=== PATIENT | male | born 1985 | race Caucasian/White ===

== ENCOUNTER 2019-12-15 14:46 | Inpatient (IN) | payer OTHER ==
--- NOTE | 2019-12-15 14:54 | PDOC ---
Rapid Medical Evaluation Chief Complaint: Pain Time Seen by Provider: 12/15/19 14:54 Medical Evaluation: Allergies Allergy/AdvReac Type Severity Reaction Status Date / Time No Known Allergies Allergy Unverified 12/15/19 14:51 Vital Signs Temp Pulse Resp BP Pulse Ox 100.1 F H 104 H 20 149/83 100 12/15/19 14:48 12/15/19 14:48 12/15/19 14:48 12/15/19 14:48 12/15/19 14:48 12/15/19 14:54 I have performed a brief in-person evaluation of this patient. CC: RLQ pain x2 days PE: RLQ tenderness. No guarding. Orders: abd w/u Patient will proceed to ED for further evaluation. Discharge Disposition - Diagnosis RLQ abdominal pain - Referrals Referrals: Regina Cardenas MD [Primary Care Provider] - - Patient Instructions - Post Discharge Activity
[2019-12-15] MEDS ORDERED: SODIUM CHLORIDE 1,000 ML IV STA (14:55)
[2019-12-15] MEDS ORDERED: ONDANSETRON 4 MG/2 ML VIAL IVPUSH ONE (14:55)
[2019-12-15] MEDS ORDERED: morphine CARPU-JECT 4 MG/1 ML DISP.SYRIN IVPUSH ONE (14:55)
[2019-12-15] MEDS ORDERED: ACETAMINOPHEN 1000 MG/100 ML VIAL (NON FORMULARY) IVPB ONE (15:03)
[2019-12-15] MEDS ORDERED: ACETAMINOPHEN INJECTION 100 ML IVPB ONE (16:12)
[2019-12-15] MEDS ORDERED: morphine SULFATE 4 MG/ML VIAL ONE (16:12)
--- NOTE | 2019-12-15 16:16 | PDOC ---
Documentation entered by Albaro Castillo SCRIBE, acting as scribe for Magy Paredes MD. Magy Paredes MD: This documentation has been prepared by the Anna galeano Nirvannie, SCRIBE, under my direction and personally reviewed by me in its entirety. I confirm that the documentation accurately reflects all work, treatment, procedures, and medical decision making performed by me. Attending Attestation - Resident Resident Name: RupaJennifer - ED Attending Attestation I have performed the following: I have examined & evaluated the patient, The case was reviewed & discussed with the resident, I agree w/resident's findings & plan, Exceptions are as noted - HPI HPI: 12/15/19 16:05 34YOM without PMH who p/w RLQ pain for the past 1.5 days which has been worsening and is constant/throbbing and 8/10. It is exacerbated by movement and associated with f/c. However he denies any n/v/d/c, flank/back pain, testicular pain or swelling or skin changes, dysuria, or other symptoms. He tried taking anti-gas/antacid medications but did not take any pain medications. He denies any prior history of these symptoms. - Physicial Exam PE: 12/15/19 16:07 GENERAL: a bit uncomfortable and a bit diaphoretic, A/Ox4, no distress, answers questions appropriately HEENT: PERRLA, EOMI, moist mucous membranes NECK/BACK: no midline ttp, no spinal stepoff or deformity, no hematoma, full ROM, neck supple CARDIOVASCULAR: regular rate/rhythm, no MGR, strong peripheral pulses, capillary refill <2 seconds, extremities wwp, no edema LUNGS/RESPIRATORY: no respiratory distress, CTAB GI/ABDOMEN: symmetric [id number], normoactive BS, soft, moderate RLQ ttp, no midline pulsatile masses : no CVA tenderness, normal testicular lay and no testicular tenderness and no scrotal skin changes or swelling, normal symmetric cremasteric reflexes MSK/EXTREMITIES: no muscle atrophy, no acute deformity SKIN: warm and dry, no pallor, no jaundice, no rash, no pathologic-appearing bruising, no skin breakdown, no cuts, no lesions NEUROLOGICAL: GCS 15, CN II-XII grossly intact, 5/5 strength proximally and distally, no facial droop - Medical Decision Making 12/15/19 16:38 34YOM p/w RLQ abdominal pain, fever, chills. Initial Vital Signs Temp Pulse Resp BP Pulse Ox 100.1 F H 104 H 20 149/83 100 12/15/19 14:48 12/15/19 14:48 12/15/19 14:48 12/15/19 14:48 12/15/19 14:48 DDX IBNLT: most likely appendicitis, also possible renal colic, less likely incarcerated/strangulated hernia, testicular torsion (especially given normal testicular exam), constipation, musculoskeletal, malignancy, contact dermatitis, etc. W/U ordered: Labs as noted below, CT abdomen/pelvis with IV contrast TX ordered: IVF Ofirmev Morphine Zofran Laboratory Tests 12/15/19 12/15/19 12/15/19 16:15 16:15 16:15 WBC 12.7 H RBC 5.07 Hgb 14.7 Hct 44.8 MCV 88.4 MCH 29.0 MCHC 32.8 RDW 13.8 Plt Count 156 MPV 9.8 Absolute Neuts (auto) 10.0 H Neutrophils % 78.8 Lymphocytes % 12.1 Monocytes % 8.7 Eosinophils % 0.1 Basophils % 0.3 Nucleated RBC % 0 PT with INR 12.60 INR 1.07 PTT (Actin FS) 31.1 Sodium Potassium Chloride Carbon Dioxide Anion Gap BUN Creatinine Est GFR (CKD-EPI)AfAm Est GFR (CKD-EPI)NonAf Random Glucose Calcium Total Bilirubin AST ALT Alkaline Phosphatase Total Protein Albumin Lipase Urine Color Yellow Urine Appearance Clear Urine pH 8.5 H Ur Specific [place] 1.017 Urine Protein Negative Urine Glucose (UA) Negative Urine Ketones Negative Urine Blood Negative Urine Nitrite Negative Urine Bilirubin Negative Urine Urobilinogen 1.0 Ur Leukocyte Esterase Negative Blood Type Antibody Screen 12/15/19 12/15/19 16:15 16:15 WBC RBC Hgb Hct MCV MCH MCHC RDW Plt Count MPV Absolute Neuts (auto) Neutrophils % Lymphocytes % Monocytes % Eosinophils % Basophils % Nucleated RBC % PT with INR INR PTT (Actin FS) Sodium 136 Potassium 4.1 Chloride 100 Carbon Dioxide 26 Anion Gap 10 BUN 12.6 Creatinine 0.9 Est GFR (CKD-EPI)AfAm 126.90 Est GFR (CKD-EPI)NonAf 109.49 Random Glucose 101 Calcium 8.9 Total Bilirubin 0.8 AST 27 ALT 44 Alkaline Phosphatase 99 Total Protein 7.4 Albumin 3.9 Lipase 107 Urine Color Urine Appearance Urine pH Ur Specific [place] Urine Protein Urine Glucose (UA) Urine Ketones Urine Blood Urine Nitrite Urine Bilirubin Urine Urobilinogen Ur Leukocyte Esterase Blood Type O POSITIVE Antibody Screen Negative 12/15/19 18:53 Patient has appendicitis on our initial CT read, necessitating admission and appendectomy, Dr. Goode has spoken with Dr. Melara, placed consult orders, started antibiotics. Patient is PNO and maintenance IVF started. Discharge - Discharge Information Problems reviewed: Yes Clinical Impression/Diagnosis: Acute appendicitis Qualifiers: Acute appendicitis type: other Qualified Code(s): K35.890 - Other acute appendicitis without perforation or gangrene; K35.89 - Other acute appendicitis Condition: Guarded - Admission Yes - Follow up/Referral Referrals: Regina Cardenas MD [Primary Care Provider] - - Patient Discharge Instructions - Post Discharge Activity
[2019-12-15 16:53] LABS: BASO % 0.3 % (0-2.0); EOS % 0.1 % (0-4.5); HEMATOCRIT 44.8 % (35.4-49); HEMOGLOBIN 14.7 GM/dL (11.7-16.9); LYMPH % 12.1 % (8-40); MCHC 32.8 g/dl (32.0-35.9); MEAN CELL VOLUME 88.4 fl (80-96); MEAN PLT VOLUME 9.8 fl (7.5-11.1); MONO % 8.7 % (3.8-10.2); NEUT % 78.8 % (42.8-82.8); PLATELET COUNT 156 K/MM3 (134-434); RBC 5.07 M/mm3 (4.00-5.60); RDW 13.8 % (11.9-15.9); WHITE BLOOD COUNT 12.7 K/mm3 (4.0-10.0)
[2019-12-15 16:55] LABS: PH,URINE 8.5 (5.0-8.0); URINE APPEARANCE CLEAR; URINE BILIRUBIN NEGATIVE (NEGATIVE); URINE COLOR YELLOW; URINE GLUCOSE (UA) NEGATIVE (NEGATIVE); URINE KETONE NEGATIVE (NEGATIVE); URINE LEUK ESTERASE NEGATIVE (NEGATIVE); URINE NITRITE NEGATIVE (NEGATIVE); URINE PROTEIN NEGATIVE (NEGATIVE)
[2019-12-15 17:13] LABS: INR 1.07 (0.83-1.09); PROTHROMBIN TIME (PATIENT) 12.6 SEC (9.7-13.0)
[2019-12-15 17:15] LABS: ACTIVATED PTT 31.1 SECONDS (25.2-36.5)
[2019-12-15 17:24] LABS: ALBUMIN 3.9 g/dl (3.4-5.0); BILIRUBIN,TOTAL 0.8 mg/dL (0.2-1); BLOOD UREA NITROGEN 12.6 mg/dL (7-18); CALCIUM 8.9 mg/dL (8.5-10.1); CREATININE 0.9 mg/dL (0.55-1.3); POTASSIUM 4.1 mmol/L (3.5-5.1); TOT PROT 7.4 g/dl (6.4-8.2)
[2019-12-15] MEDS ORDERED: PIPERACILLIN/TAZOB 3.375 GM 3.375 GM in DEXTROSE 5%-WATER - 50 ML IVPB ONE (18:55)
[2019-12-15] MEDS ORDERED: LACTATED RINGERS SOLUTION 1,000 ML/1,000 ML INFUS.BAG IV SCH (19:00)
[2019-12-15] MEDS ORDERED: PIPERACILLIN/TAZOB 3.375 GM 3.375 GM/50 ML BAG IVPB ONE (19:15)
--- NOTE | 2019-12-15 19:19 | PDOC ---
History of Present Illness - General Chief Complaint: Pain Stated Complaint: Pain Time Seen by Provider: 12/15/19 14:54 History Source: Patient Exam Limitations: No Limitations - History of Present Illness Initial Comments: 12/15/19 19:10 34y M with no significant PMH presenting to the ER for RLQ abdominal pain that started yesterday at 0400. He states the pain is sharp, in the RLQ, associated with nausea and bloating. He has not had this pain before. He tried taking antacids and Mylanta but it did not help. Last meal was around noon today and last BM was this AM. Denies chills, chest pain, vomiting, diarrhea, constipation, abdominal surgeries, dysuria, testicular pain, penile discharge, history of STDs, SOB. PMD: Ronald PMH: none PSH: none Meds: none Allergies: nkda Social: denies Past History - Medical History Allergies/Adverse Reactions: Allergies Allergy/AdvReac Type Severity Reaction Status Date / Time No Known Allergies Allergy Unverified 12/15/19 14:51 Home Medications: Ambulatory Orders Unobtainable 12/15/19 COPD: No - Psycho-Social/Smoking History Smoking History: Never smoked Have you smoked in the past 12 months: No Information on smoking cessation initiated: No - Substance Abuse Hx (Audit-C & DAST Scrn) How often the patient has a drink containing alcohol: 4 0r more times/wk Number of drinks the patient has on a typical day: 1 or 2 How often the patient has six or more drinks on one occasion: Daily or almost daily Score: In Men: 4 or > Positive; In Women: 3 or > Positive: 8 Screen Result (Pos requires Nsg. Audit-10AR): Positive In the last yr the pt used illegal drug/Rx for NonMed reason: No Score: Yes response is considered Positive: 0 Screen Result (Positive result requires Nsg. DAST-10): Negative Review of Systems - Review of Systems Constitutional: Yes: Fever. No: Loss of Appetite, Night Sweats HEENTM: No: Symptoms Reported Respiratory: No: Symptoms reported Cardiac (ROS): No: Symptoms Reported ABD/GI: Yes: See HPI : No: Symptoms Reported Musculoskeletal: No: Symptoms Reported Integumentary: No: Symptoms Reported *Physical Exam - Vital Signs Last Vital Signs Temp Pulse Resp BP Pulse Ox 100.1 F H 104 H 20 149/83 100 12/15/19 14:48 12/15/19 14:48 12/15/19 14:48 12/15/19 14:48 12/15/19 14:48 - Physical Exam General Appearance: Yes: Nourished, Appropriately Dressed. No: Apparent Distress HEENT: positive: EOMI, PRIYANK. negative: Normal ENT Inspection Neck: positive: Trachea midline, Supple Respiratory/Chest: positive: Lungs Clear, Normal Breath Sounds. negative: Rales, Rhonchi, Stridor, Wheezing, Dullness Cardiovascular: positive: Regular Rhythm, Regular Rate, S1, S2. negative: Edema, JVD, Murmur Vascular Pulses: Dorsalis-Pedis (R): 2+, Doralis-Pedis (L): 2+ Gastrointestinal/Abdominal: positive: Normal Bowel Sounds, Soft, Distended (mild distension), Tenderness (RLQ +McBurney's). negative: Guarding, Rebound Male Genitalia: positive: normal genitalia, other (normal testicular lie, normal cremasteric reflexes bilaterally). negative: discharge, testicular tenderness, testicular mass Musculoskeletal: negative: CVA Tenderness Extremity: positive: Normal Capillary Refill. negative: Pedal Edema, Swelling, Calf Tenderness Integumentary: positive: Normal Color, Dry, Warm Neurologic: positive: pediatric acute care unit nurse II-XII NML intact, Fully Oriented, Alert, Normal Mood/Affect, Normal Response, Motor Strength 5/5 ED Treatment Course - LABORATORY CBC & Chemistry Diagram: 12/15/19 16:15 12/15/19 16:15 - ADDITIONAL ORDERS Additional order review: Laboratory Results 12/15/19 12/15/19 12/15/19 16:15 16:15 16:15 PT with INR INR PTT (Actin FS) Sodium 136 Potassium 4.1 Chloride 100 Carbon Dioxide 26 Anion Gap 10 BUN 12.6 Creatinine 0.9 Est GFR (CKD-EPI)AfAm 126.90 Est GFR (CKD-EPI)NonAf 109.49 Random Glucose 101 Calcium 8.9 Total Bilirubin 0.8 AST 27 ALT 44 Alkaline Phosphatase 99 Total Protein 7.4 Albumin 3.9 Lipase 107 Urine Color Yellow Urine Appearance Clear Urine pH 8.5 H Ur Specific [place] 1.017 Urine Protein Negative Urine Glucose (UA) Negative Urine Ketones Negative Urine Blood Negative Urine Nitrite Negative Urine Bilirubin Negative Urine Urobilinogen 1.0 Ur Leukocyte Esterase Negative Blood Type O POSITIVE Antibody Screen Negative 12/15/19 16:15 PT with INR 12.60 INR 1.07 PTT (Actin FS) 31.1 Sodium Potassium Chloride Carbon Dioxide Anion Gap BUN Creatinine Est GFR (CKD-EPI)AfAm Est GFR (CKD-EPI)NonAf Random Glucose Calcium Total Bilirubin AST ALT Alkaline Phosphatase Total Protein Albumin Lipase Urine Color Urine Appearance Urine pH Ur Specific [place] Urine Protein Urine Glucose (UA) Urine Ketones Urine Blood Urine Nitrite Urine Bilirubin Urine Urobilinogen Ur Leukocyte Esterase Blood Type Antibody Screen 12/15/19 16:15 RBC 5.07 MCV 88.4 MCHC 32.8 RDW 13.8 MPV 9.8 Neutrophils % 78.8 Lymphocytes % 12.1 Monocytes % 8.7 Eosinophils % 0.1 Basophils % 0.3 - Medications Given in the ED: ED Medications Discontinued Medications Generic Name Dose Route Start Last Admin Trade Name Freq PRN Reason Stop Dose Admin Acetaminophen 1,000 mg 12/15/19 15:03 12/15/19 16:21 Ofirmev Injection - IVPB 12/15/19 15:04 1,000 mg ONCE ONE Administration Sodium Chloride 1,000 mls @ 1,000 mls/hr 12/15/19 14:55 12/15/19 16:21 Normal Saline - IV 12/15/19 15:54 1,000 mls/hr ASDIR STA Administration Morphine Sulfate 4 mg 12/15/19 14:55 12/15/19 16:21 Morphine Injection - IVPUSH 12/15/19 14:56 4 mg ONCE ONE Administration Ondansetron HCl 4 mg 12/15/19 14:55 12/15/19 16:21 Zofran Injection IVPUSH 12/15/19 14:56 4 mg ONCE ONE Administration Medical Decision Making - Medical Decision Making 12/15/19 19:20 34y M presenting with RLQ abdominal pain. vitals: febrile pe: RLQ tenderness at McBurney's point. negative rovsing. high suspicion for appendicitis. do not suspect torsion or gu pathology given normal testicular exam. labs ordered by rme. will give tylenol for fever. morphine for pain, LR. labs show leukocytosis otherwise wnl call from Dr. Crystal: +appendicitis. call placed to surgery; will take to OR tomorrow -Zosyn -LR at 125cc/h admit to med/surg. Discharge - Discharge Information Problems reviewed: Yes Clinical Impression/Diagnosis: Acute appendicitis Qualifiers: Acute appendicitis type: other Qualified Code(s): K35.890 - Other acute appendicitis without perforation or gangrene Condition: Guarded - Admission Yes - Follow up/Referral Referrals: Regina Cardenas MD [Primary Care Provider] - - Patient Discharge Instructions - Post Discharge Activity
--- NOTE | 2019-12-15 19:29 | PN ---
Teaching Attending Note Name of Resident: Mike Bell ATTENDING PHYSICIAN STATEMENT I saw and evaluated the patient. I reviewed the resident's note and discussed the case with the resident. I agree with the resident's findings and plan as documented. SUBJECTIVE: Patient is a 34 year old man with no reported PMH who presents with RLQ pain for the past 2 days. Pain has been worsening, is constant, throbbing and rated 8/10. It is exacerbated by movement and associated with fever and chills. He tried taking anti-gas/antacid medications but did not take any pain medications. He denies any prior abdominal surgery or GI disorder. Denies nausea, vomiting, SOB, back pain, chest pain, testicular pain/swelling, diarrhea or dysuria. Denies al cohol, tobacco or illicit drug use. No sick contacts or recent travels. 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 His brother had appendicitis. Family history is otherwise unremarkable. OBJECTIVE: Alert Vital Signs Period Temp Pulse Resp BP Sys/David Pulse Ox Last 24 Hr 100.1 F 68-104 18-20 127-149/81-83 97-100 HEENT: No Jaundice, eye redness or discharge, PERRLA, EOMI. Normocephalic, atraumatic. External ears are normal and hearing is grossly intact. No nasal discharge. Neck: Supple, nontender. No palpable adenopathy or thyromegaly. No JVD Chest: Good effort. Clear to auscultation and percussion. Heart: Regular. No S3, rub or murmur Abdomen: Not distended, soft, RLQ tenderness and no HSM. No rebound or guarding. Normal bowel sounds. Ext: Peripheral pulses intact. No leg edema. Skin: Warm and dry. No petechiae, rash or ecchymosis. Neuro: Alert. Oriented x3. CN 2-12 grossly intact. Sensation grossly intact in all four extremities and DTR are symmetric. Psych: Appropriate mood and affect. Good insight. Home Medications Medication Instructions Recorded Unobtainable 12/15/19 Abnormal Lab Results 12/15/19 12/15/19 16:15 16:15 WBC 12.7 H Absolute Neuts (auto) 10.0 H Urine pH 8.5 H Current Medications Generic Name Dose Route Start Last Admin Trade Name Freq PRN Reason Stop Dose Admin Piperacillin Sod/Tazobactam 50 mls @ 100 mls/hr 12/16/19 02:00 Sod 3.375 gm/ Dextrose IVPB Q8H-IV MANJEET Protocol Piperacillin Sod/Tazobactam 50 mls @ 100 mls/hr 12/16/19 02:00 Sod 3.375 gm/ Dextrose IVPB 12/16/19 18:29 Q8H-IV MANJEET Protocol Lactated Ringer's 1,000 mls @ 100 mls/hr 12/15/19 21:10 Lactated Ringers Solution IV ASDIR MANJEET Morphine Sulfate 2 mg 12/15/19 20:47 12/15/19 21:32 Morphine Sulfate IVPUSH 2 mg Q4H PRN Administration PAIN LEVEL 7 - 10 ASSESSMENT AND PLAN: 1. Appendicitis with possible early perforation - CT scan of abdomen/pelvis with IV contrast shows appendicitis with possible early perforation and diffuse hepatic steatosis. ER staff consulted surgery. Patient being kept NPO and got IV Zosyn. Will continue IV LR, IV Zosyn and use IV Morphine for pain control. Viral testing for COVID-19 ordered and patient placed on airborne, droplet and contact isolation. EKG shows NSR at 65/minute and QTc [address]-T wave changes. 2. DVT prophylaxis - SCD. 3. Advance directives - Full code
--- NOTE | 2019-12-15 20:46 | HP ---
CHIEF COMPLAINT: Right lower abd pain PCP: HISTORY OF PRESENT ILLNESS: 34M w/ no significant PMH presented to [facility] for complaint of 2d of abdominal pain, initially starting vague periumbilical before migrating to a focal area of the RLQ. Initially tried a liquid antacid which provided mild relief. When he wo ke up today he felt that the pain was still 8 of 10 so he decided to go to the hospital where his brother in-law is part of the R staff. Denies F/C, NVD. Has an appetite. ER course was notable for: (1) Tmax 100.1F, HR 104, WBC 12.7 (2) Tbil 0.8, ASTn 27/44, Lipase 107 (3) CT A/P: acute appendicitis, possible early perforation, diffuse hepatic steatosis (4): NS x1L, LR x1L, zofran, ofirmev, morphine 4, zosyn Recent Travel: denies PAST MEDICAL HISTORY: none PAST SURGICAL HISTORY: none Social History: Smoking: smoke a few years in late teenage Alcohol: usually 6 beers a week Drugs: denies Allergies No Known Allergies Allergy (Unverified 12/15/19 14:51) HOME MEDICATIONS: Home Medications Medication Instructions Recorded Unobtainable 12/15/19 REVIEW OF SYSTEMS CONSTITUTIONAL: Absent: fever, chills, diaphoresis, generalized weakness, malaise, loss of appetite, weight change HEENT: Absent: rhinorrhea, nasal congestion, throat pain, throat swelling, difficulty swallowing, mouth swelling, ear pain, eye pain, visual changes CARDIOVASCULAR: Absent: chest pain, syncope, palpitations, irregular heart rate, lightheadedness, peripheral edema RESPIRATORY: Absent: cough, shortness of breath, dyspnea with exertion, orthopnea, wheezing, stridor, hemoptysis GASTROINTESTINAL: periumbilical pain, RLQ pain Absent: abdominal pain, abdominal distension, nausea, vomiting, diarrhea, constipation, melena, hematochezia GENITOURINARY: Absent: dysuria, frequency, urgency, hesitancy, hematuria, flank pain, genital pain MUSCULOSKELETAL: Absent: myalgia, arthralgia, joint swelling, back pain, neck pain SKIN: Absent: rash, itching, pallor HEMATOLOGIC/IMMUNOLOGIC: Absent: easy bleeding, easy bruising, lymphadenopathy, frequent infections ENDOCRINE: Absent: unexplained weight gain, unexplained weight loss, heat intolerance, cold intolerance NEUROLOGIC: Absent: headache, focal weakness or paresthesias, dizziness, unsteady gait, seizure, mental status changes, bladder or bowel incontinence PSYCHIATRIC: Absent: anxiety, depression, suicidal or homicidal ideation, hallucinations. PHYSICAL EXAMINATION Vital Signs - 24 hr 12/15/19 12/15/19 14:48 19:44 Temperature 100.1 F H Pulse Rate 104 H Pulse Rate [ 68 Left] Respiratory 20 18 Rate Blood Pressure 149/83 Blood Pressure 127/81 [Left Arm] O2 Sat by Pulse 100 97 Oximetry (%) GENERAL: Awake, alert, and fully oriented, in no acute distress. HEAD: Normal with no signs of trauma. EYES: extraocular movements intact, sclera anicteric, conjunctiva clear. EARS, NOSE, THROAT: oropharynx clear without exudates. Moist mucous membranes. NECK: Normal range of motion, supple without lymphadenopathy, JVD, or masses. LUNGS: Breath sounds equal, clear to auscultation bilaterally. No wheezes, and no crackles. No accessory muscle use. HEART: Regular rate and rhythm, normal S1 and S2 without murmur, rub or gallop. ABDOMEN: Soft, not distended, TTP of McBurney's point, Neg Rovsing's, Neg Psoas, Positive Obturator's. Involuntary guarding with palpation of RLQ. Neg rebound. MUSCULOSKELETAL: Normal range of motion at all joints. No bony deformities or tenderness. No CVA tenderness. UPPER EXTREMITIES: 2+ pulses, warm, well-perfused. No cyanosis. No clubbing. No peripheral edema. LOWER EXTREMITIES: 2+ pulses, warm, well-perfused. No calf tenderness. No peripheral edema. NEUROLOGICAL: normal speech. Laboratory Results - last 24 hr 12/15/19 12/15/19 12/15/19 16:15 16:15 16:15 WBC 12.7 H RBC 5.07 Hgb 14.7 Hct 44.8 MCV 88.4 MCH 29.0 MCHC 32.8 RDW 13.8 Plt Count 156 MPV 9.8 Absolute Neuts (auto) 10.0 H Neutrophils % 78.8 Lymphocytes % 12.1 Monocytes % 8.7 Eosinophils % 0.1 Basophils % 0.3 Nucleated RBC % 0 PT with INR 12.60 INR 1.07 PTT (Actin FS) 31.1 Sodium Potassium Chloride Carbon Dioxide Anion Gap BUN Creatinine Est GFR (CKD-EPI)AfAm Est GFR (CKD-EPI)NonAf Random Glucose Calcium Total Bilirubin AST ALT Alkaline Phosphatase Total Protein Albumin Lipase Urine Color Yellow Urine Appearance Clear Urine pH 8.5 H Ur Specific [place] 1.017 Urine Protein Negative Urine Glucose (UA) Negative Urine Ketones Negative Urine Blood Negative Urine Nitrite Negative Urine Bilirubin Negative Urine Urobilinogen 1.0 Ur Leukocyte Esterase Negative Blood Type Antibody Screen 12/15/19 12/15/19 16:15 16:15 WBC RBC Hgb Hct MCV MCH MCHC RDW Plt Count MPV Absolute Neuts (auto) Neutrophils % Lymphocytes % Monocytes % Eosinophils % Basophils % Nucleated RBC % PT with INR INR PTT (Actin FS) Sodium 136 Potassium 4.1 Chloride 100 Carbon Dioxide 26 Anion Gap 10 BUN 12.6 Creatinine 0.9 Est GFR (CKD-EPI)AfAm 126.90 Est GFR (CKD-EPI)NonAf 109.49 Random Glucose 101 Calcium 8.9 Total Bilirubin 0.8 AST 27 ALT 44 Alkaline Phosphatase 99 Total Protein 7.4 Albumin 3.9 Lipase 107 Urine Color Urine Appearance Urine pH Ur Specific [place] Urine Protein Urine Glucose (UA) Urine Ketones Urine Blood Urine Nitrite Urine Bilirubin Urine Urobilinogen Ur Leukocyte Esterase Blood Type O POSITIVE Antibody Screen Negative ASSESSMENT/PLAN: 34M w/ no significant PMH presented to [facility] for complaint of 2d of abdominal pain, initially starting vague periumbilical before migrating to a focal area of the RLQ. CT findings suggestive of appendicitis. Admitted for appendicitis. #RLQ pain --likely 2/2 appenditis #Sepsis 2/2 appendicitis > Tmax 100.1F, HR 104, WBC 12.7 > CT A/P: acute appendicitis, possible early perforation, diffuse hepatic steatosis - NPO - abx regimen: zosyn - pain regimen: morphine 2mg - mIVF - ID consult(Isidra) - Surgery Consult(Kelton): --Dr Melara aware, rec pending FEN - LR @100 - NPO DVT PPX: - SCDs Family Medical History Family Hx Gastrointestinal Disorder: Brother (appendicitis) Visit type - Emergency Visit Emergency Visit: Yes ED Registration Date: 12/15/19 Care time: The patient presented to the Emergency Department on the above date and was hospitalized for further evaluation of their emergent condition. - New Patient This patient is new to me today: Yes Date on this admission: 12/16/19 - Critical Care Critical Care patient: No ATTENDING PHYSICIAN STATEMENT I saw and evaluated the patient. I reviewed the resident's note and discussed the case with the resident. I agree with the resident's findings and plan as documented. SUBJECTIVE: OBJECTIVE: ASSESSMENT AND PLAN:
[2019-12-15] MEDS ORDERED: LACTATED RINGERS SOLUTION 1,000 ML IV SCH (21:00)
[2019-12-15] MEDS ORDERED: MORPHINE SULFATE 2 MG/ML VIAL ONE (21:30)
[2019-12-15] MEDS: MORPHINE SULFATE 2 MG/ML VIAL IVPUSH PRN (21:32)
[2019-12-16 00:34] VITALS: BMI 29.5
[2019-12-16] MEDS ORDERED: MORPHINE SULFATE 2 MG/ML VIAL IVPUSH ONE (00:38)
[2019-12-16] MEDS: LACTATED RINGERS SOLUTION 1,000 ML IV SCH ×3 (01:00→19:45)
[2019-12-16] MEDS ORDERED: DEXTROSE 5%-WATER - 50 ML IVPB ONE ×2 (01:18→08:43)
[2019-12-16] MEDS ORDERED: PIPERACILLIN/TAZOBACTAM 3.375 GM VIAL IVPB ONE ×2 (01:18→08:43)
[2019-12-16] MEDS: PIPERACILLIN/TAZOB 3.375 GM 3.375 GM in DEXTROSE 5%-WATER - 50 ML IVPB SCH ×2 (01:25→09:08)
[2019-12-16] MEDS ORDERED: PIPERACILLIN/TAZOB 3.375 GM 3.375 GM in DEXTROSE 5%-WATER - 50 ML IVPB SCH (02:00)
[2019-12-16 04:03] LABS: URINE APPEARANCE CLEAR; URINE BILIRUBIN NEGATIVE (NEGATIVE); URINE COLOR YELLOW; URINE GLUCOSE (UA) NEGATIVE (NEGATIVE); URINE KETONE NEGATIVE (NEGATIVE); URINE LEUK ESTERASE NEGATIVE (NEGATIVE); URINE NITRITE NEGATIVE (NEGATIVE); URINE PROTEIN TRACE (NEGATIVE)
[2019-12-16] MEDS: MORPHINE SULFATE 2 MG/ML VIAL IVPUSH PRN (05:36)
[2019-12-16] MEDS ORDERED: ACETAMINOPHEN 1000 MG/100 ML VIAL (NON FORMULARY) IVPB ONE (06:13)
[2019-12-16 08:52] LABS: HEMATOCRIT 41.3 % (35.4-49); HEMOGLOBIN 13.6 GM/dL (11.7-16.9); MCH 29.3 pg (25.7-33.7); MCHC 33.1 g/dl (32.0-35.9); MEAN CELL VOLUME 88.7 fl (80-96); MEAN PLT VOLUME 9.8 fl (7.5-11.1); PLATELET COUNT 136 K/MM3 (134-434); RBC 4.65 M/mm3 (4.00-5.60); WHITE BLOOD COUNT 15.5 K/mm3 (4.0-10.0)
--- NOTE | 2019-12-16 09:11 | CONSULT ---
- Consultation REQUESTING PROVIDER: Cara Redd MD CONSULT REQUEST: We have been asked to surgically evaluate this patient for a cute appendicitis. PCP:Radha Lambert HISTORY OF PRESENT ILLNESS:CTSP who is a 34 y/o male who presented w/ RLQ pain for the past 24-36 hours which has been worsening and is constant/throbbing and 8/10. It is exacerbated by movement and better while lying still and associated with fever and chills and anorexia. He denies any n/v/d/c, flank/back pain, testicular pain or other GI symptoms. He tried taking anti-gas/antacid medications but did not take any pain medications. He denies any prior history of these symptoms. Pain is w/o radiation from the RLQ; he has no other GI/ c/o's. PMHx: none PSHx: none Home Medications Medication Instructions Recorded Unobtainable 12/15/19 Allergies Allergy/AdvReac Type Severity Reaction Status Date / Time No Known Allergies Allergy Unverified 12/15/19 14:51 REVIEW OF SYSTEMS: CONSTITUTIONAL: Absent: fever, chills, diaphoresis, generalized weakness, malaise, loss of appetite, weight change CARDIOVASCULAR: Absent: chest pain, syncope, palpitations, irregular heart rate, lightheadedness, peripheral edema RESPIRATORY: Absent: cough, shortness of breath, dyspnea with exertion, wheezing, stridor, hemoptysis GASTROINTESTINAL: Absent: abdominal pain, abdominal distension, nausea, vomiting, diarrhea, constipation, melena, hematochezia GENITOURINARY: Absent: dysuria, frequency, urgency, hesitancy, hematuria, flank pain, genital pain MUSCULOSKELETAL: Absent: myalgia, arthralgia, joint swelling, back pain, neck pain SKIN: Absent: rash, itching, pallor HEMATOLOGIC/IMMUNOLOGIC: Absent: easy bleeding, easy bruising, lymphadenopathy NEUROLOGIC: Absent: headache, focal weakness, paresthesias, dizziness, unsteady gait, seizure, mental status changes, bladder or bowel incontinence PSYCHIATRIC: Absent: anxiety, depression, suicidal or homicidal ideation, hallucinations. PHYSICAL EXAM: GENERAL: Awake, alert, and fully oriented, in no acute distress. HEAD: Normal with no signs of trauma. EYES: PERRL, sclera anicteric, conjunctiva clear. NECK: Normal ROM, supple without lymphadenopathy, JVD, or masses. ABDOMEN: Soft, tender RLQ; not distended, normoactive bowel sounds, RLQ guarding and rebound, no masses. No organomegaly. No hernias; psoas; Rovsings and obturator signs are present. MUSCULOSKELETAL: Normal ROM at all joints. No bony deformities or tenderness. No CVA tenderness. UPPER EXTREMITIES: 2+ pulses, warm, well-perfused. No cyanosis. Cap refill <2 seconds. No peripheral edema. LOWER EXTREMITIES: 2+ pulses, warm, well-perfused. No calf tenderness. No peripheral edema. NEUROLOGICAL: Normal speech, gait not observed. PSYCH: Cooperative. Good eye contact. Appropriate mood and affect. SKIN: Warm, dry, normal turgor, no rashes or lesions noted. Vital Signs Temperature 100.5 F H 12/16/19 08:00 Pulse Rate 88 12/16/19 08:00 Respiratory Rate 20 12/16/19 08:00 Blood Pressure 114/53 L 12/16/19 08:00 O2 Sat by Pulse Oximetry (%) 100 12/16/19 08:00 Lab Results WBC 15.5 K/mm3 (4.0-10.0) H 12/16/19 07:50 RBC 4.65 M/mm3 (4.00-5.60) 12/16/19 07:50 Hgb 13.6 GM/dL (11.7-16.9) 12/16/19 07:50 Hct 41.3 % (35.4-49) 12/16/19 07:50 MCV 88.7 fl (80-96) 12/16/19 07:50 MCHC 33.1 g/dl (32.0-35.9) 12/16/19 07:50 RDW 14.0 % (11.9-15.9) 12/16/19 07:50 Plt Count 136 K/MM3 (134-434) 12/16/19 07:50 INR 1.07 (0.83-1.09) 12/15/19 16:15 Sodium 136 mmol/L (136-145) 12/15/19 16:15 Potassium 4.1 mmol/L (3.5-5.1) 12/15/19 16:15 Chloride 100 mmol/L (98-107) 12/15/19 16:15 Carbon Dioxide 26 mmol/L (21-32) 12/15/19 16:15 Anion Gap 10 MMOL/L (8-16) 12/15/19 16:15 BUN 12.6 mg/dL (7-18) 12/15/19 16:15 Creatinine 0.9 mg/dL (0.55-1.3) 12/15/19 16:15 Random Glucose 101 mg/dL (74-106) 12/15/19 16:15 Calcium 8.9 mg/dL (8.5-10.1) 12/15/19 16:15 Blood Type O POSITIVE 12/15/19 16:15 Antibody Screen Negative 12/15/19 16:15 CT a/p images and report reviewed IMP: acute appendicitis PLAN: Laparoscopic possible open appendectomy; r/b/t/a's d/w the patient and informed consent obtained. Immanuel Mealra MD FACS
[2019-12-16 09:19] LABS: BLOOD UREA NITROGEN 10.6 mg/dL (7-18); CALCIUM 8.5 mg/dL (8.5-10.1); CREATININE 0.9 mg/dL (0.55-1.3); MAGNESIUM 2.3 mg/dL (1.8-2.4); POTASSIUM 4.1 mmol/L (3.5-5.1)
[2019-12-16] MEDS ORDERED: VANCOMYCIN 1 GRAM (PRE-DOCKED) 1,000 MG/250 ML BAG IVPB ONE (10:24)
[2019-12-16] MEDS ORDERED: PIPERACILLIN/TAZOB 4.5 GM 4.5 GM in DEXTROSE 5%-WATER 100 ML IVPB SCH ×3 (10:30→21:00)
--- NOTE | 2019-12-16 15:00 | EKG ---
Test Reason : Blood Pressure : / mmHG Vent. Rate : 065 BPM Atrial Rate : 065 BPM P-R Int : 148 ms QRS Dur : 100 ms QT Int : 366 ms P-R-T Axes : 061 058 021 degrees QTc Int : 380 ms NORMAL SINUS RHYTHM NORMAL ECG NO PREVIOUS ECGS AVAILABLE Confirmed by CHENG PEARSON MD ([id number]) on 12/16/2019 3:00:11 PM Referred By: Confirmed By:CHENG PEARSON MD
[2019-12-16] MEDS ORDERED: fentaNYL CITRATE 250 MCG/5 ML VIAL ONE (16:02)
[2019-12-16] MEDS ORDERED: SUCCINYLCHOLINE CHLORIDE 200 MG/10 ML SYRINGE ONE (16:02)
[2019-12-16] MEDS ORDERED: MIDAZOLAM HCL 2 MG/2 ML SINGLE DOSE VIAL ONE (16:02)
[2019-12-16] MEDS ORDERED: ROCURONIUM BROMIDE 50 MG/5 ML SYRINGE ONE (16:02)
[2019-12-16] MEDS ORDERED: PROPOFOL 20 ML ONE ×2 (16:02→16:56)
[2019-12-16] MEDS ORDERED: cefOXitin SODIUM 2 GM VIAL (RESTRICTED TO ID) IVPB ONE ×3 (16:05→16:27)
[2019-12-16] MEDS ORDERED: LIDOCAINE HCL/PF 2% SDV 5ML VIAL ONE (16:06)
[2019-12-16] MEDS ORDERED: BUPIVACAINE HCL 100 ML ONE (16:16)
[2019-12-16] MEDS ORDERED: DEXAMETHASONE SOD PHOSPHATE 4 MG/1 ML VIAL ONE (16:40)
[2019-12-16] MEDS ORDERED: ONDANSETRON 4 MG/2 ML VIAL IVPUSH PRN ×2 (17:05→17:54)
[2019-12-16] MEDS ORDERED: LACTATED RINGERS SOLUTION 1,000 ML IV SCH (17:15)
[2019-12-16] MEDS ORDERED: NEOSTIGMINE METHYLSULFATE 0.5 MG/ML - 10 ML MDV ONE (17:23)
[2019-12-16] MEDS ORDERED: GLYCOPYRROLATE 0.2 MG/1 ML VIAL ONE (17:24)
[2019-12-16] MEDS ORDERED: KETOROLAC TROMETHAMINE 30 MG/1 ML VIAL ONE (17:24)
[2019-12-16] MEDS ORDERED: BUPIVACAINE HCL/PF 0.5% (5 MG/ML) 30 ML VIAL IJ ONE (17:26)
--- NOTE | 2019-12-16 17:30 | OP ---
Operative Note - Note: Operative Date: 12/16/19 Pre-Operative Diagnosis: acute appendicitis Operation: laparoscopic appendectomy Findings: acute gangrenous appendicitis w/perforation. Post-Operative Diagnosis: Other (acute gangrenous appendicitis w/perforation) Surgeon: Immanuel Melara Stamp Mounter: Yoselin Leal Anesthesiologist/WASHER ENGINEER: Millie Colorado Anesthesia: General Specimens Removed: appendix Estimated Blood Loss (mls): 40 Drains & Tubes with Location: 10 mm QUINCY in the RLQ
--- NOTE | 2019-12-16 17:51 | PN ---
Progress Note (short form) - Note Progress Note: Patient has no fever , comfortable at this time Vital Signs Temperature 101.1 F H 12/16/19 14:00 Pulse Rate 87 12/16/19 14:00 Respiratory Rate 20 12/16/19 14:00 Blood Pressure 124/78 12/16/19 14:00 O2 Sat by Pulse Oximetry (%) 96 12/16/19 14:00 GENERAL: The patient is awake, alert, and fully oriented, in no acute distress. HEAD: Normal with no signs of trauma. EYES: PERRL, extraocular movements intact, sclera anicteric, conjunctiva clear. ENT: Ears normal, oropharynx clear without exudates, moist mucous membranes. NECK: Trachea midline, full range of motion, supple. LUNGS: Breath sounds equal, clear to auscultation bilaterally, no wheezes, no crackles, no accessory muscle use. HEART: Regular rate and rhythm, S1, S2 without murmur, rub or gallop. ABDOMEN: Soft, RLQ tendernss, no rebound, no hepatosplenomegaly, no masses. EXTREMITIES: 2+ pulses, warm, well-perfused, no edema. NEUROLOGICAL: Cranial nerves II through XII grossly intact. Normal speech, gait not observed. PSYCH: Normal mood, normal affect. SKIN: Warm, dry, normal turgor, no rashes or lesions noted CBCD WBC 15.5 K/mm3 (4.0-10.0) H 12/16/19 07:50 RBC 4.65 M/mm3 (4.00-5.60) 12/16/19 07:50 Hgb 13.6 GM/dL (11.7-16.9) 12/16/19 07:50 Hct 41.3 % (35.4-49) 12/16/19 07:50 MCV 88.7 fl (80-96) 12/16/19 07:50 MCHC 33.1 g/dl (32.0-35.9) 12/16/19 07:50 RDW 14.0 % (11.9-15.9) 12/16/19 07:50 Plt Count 136 K/MM3 (134-434) 12/16/19 07:50 MPV 9.8 fl (7.5-11.1) 12/16/19 07:50 CMP Sodium 135 mmol/L (136-145) L 12/16/19 07:50 Potassium 4.1 mmol/L (3.5-5.1) 12/16/19 07:50 Chloride 100 mmol/L (98-107) 12/16/19 07:50 Carbon Dioxide 29 mmol/L (21-32) 12/16/19 07:50 Anion Gap 7 MMOL/L (8-16) L 12/16/19 07:50 BUN 10.6 mg/dL (7-18) 12/16/19 07:50 Creatinine 0.9 mg/dL (0.55-1.3) 12/16/19 07:50 Random Glucose 105 mg/dL (74-106) 12/16/19 07:50 Calcium 8.5 mg/dL (8.5-10.1) 12/16/19 07:50 Total Bilirubin 0.8 mg/dL (0.2-1) 12/15/19 16:15 AST 27 U/L (15-37) 12/15/19 16:15 ALT 44 U/L (13-61) 12/15/19 16:15 Alkaline Phosphatase 99 U/L (45-117) 12/15/19 16:15 Total Protein 7.4 g/dl (6.4-8.2) 12/15/19 16:15 Albumin 3.9 g/dl (3.4-5.0) 12/15/19 16:15 Current Medications Generic Name Dose Route Start Last Admin Trade Name Freq PRN Reason Stop Dose Admin Acetaminophen 1,000 mg 12/16/19 18:00 Ofirmev Injection - IVPB 12/17/19 06:01 Q6H MANJEET Fentanyl 50 mcg 12/16/19 17:05 Sublimaze Injection - IVPUSH 12/16/19 21:00 Q5M PRN PAIN-PACU ORDER X 4 DOSES ONLY Piperacillin Sod/Tazobactam 100 mls @ 200 mls/hr 12/16/19 18:00 Sod 4.5 gm/ Dextrose IVPB 12/17/19 17:59 Q8H-IV MANJEET Protocol Lactated Ringer's 1,000 mls @ 125 mls/hr 12/16/19 17:15 Lactated Ringers Solution IV ASDIR MANJEET Morphine Sulfate 2 mg 12/15/19 20:47 12/16/19 05:36 Morphine Sulfate IVPUSH 2 mg Q4H PRN Administration PAIN LEVEL 7 - 10 Ondansetron HCl 4 mg 12/16/19 17:05 Zofran Injection IVPUSH 12/16/19 21:00 Q6H PRN NAUSEA AND/OR VOMITING Home Medications Medication Instructions Recorded Unobtainable 12/15/19 Assessment and plan: This patient is a 34yom with no significant Pmhx presneted with abdominal pain, and was found to have acute appendicitis s. #POD#0 acute appendicitis s/p lap appendix , perforated gangerounous appendix as per sx Dr. Melara IVF, NPO, Id consult, Zosyn 4.5gm q8h DVT PPX: - SCDs Visit type - Emergency Visit Emergency Visit: Yes ED Registration Date: 12/15/19 Care time: The patient presented to the Emergency Department on the above date and was hospitalized for further evaluation of their emergent condition. - New Patient This patient is new to me today: Yes Date on this admission: 12/16/19 - Critical Care Critical Care patient: No - Discharge Referral Referred to [facility] Med P.C.: No
[2019-12-16] MEDS ORDERED: oxyCODONE HCL 5 MG TABLET PO PRN (17:54)
--- NOTE | 2019-12-16 17:56 | SURG ---
Surgery Administrative Sales Assistant Note Administrative Sales Assistant: Yoselin Leal PA-C Date of Service: 12/16/19 Diagnosis: acute appendicitis Procedure: laparoscopic appendectomy I was present for the entirety of the operative procedure. For further detail, please refer to operative report. Visit type - Case Type Case Type: ED Admission - Emergency Emergency Visit: Yes ED Registration Date: 12/15/19 Care time: The patient presented to the Emergency Department on the above date and was hospitalized for further evaluation of their emergent condition. - New patient This patient is new to me today: Yes Date on this admission: 12/16/19
[2019-12-16] MEDS ORDERED: ACETAMINOPHEN INJECTION 100 ML IVPB ONE (18:13)
[2019-12-16] MEDS: ACETAMINOPHEN 1000 MG/100 ML VIAL (NON FORMULARY) IVPB SCH (18:16)
[2019-12-16] MEDS ORDERED: MORPHINE SULFATE 2 MG/ML VIAL IVPUSH PRN (19:31)
--- NOTE | 2019-12-16 19:55 | CON.ID ---
Consult - History of Present Illness History of Present Illness: 34 y.o. male with PMH presented to the ER yesterday with c/o severe RLQ pain that began 2 days prior. Pain described as intense and persistent and worsened with movement. Pt states he had nausea but denied vomiting or diarrhea. In the ER he was noted to be ill-appearing and diaphoretic with fever and tachycardia. Mild leukocytosis found and CT A/P revealed acute appendicitis with possible perforation. Broad spectrum antibiotics were started. Pt noted to be persistently febrile up to 102.5F and wbc increased to 15K. Today patient underwent Laparoscopic appendectomy and noted to have a gangrenous appendix with evidence of perforation. Currently he is alert, afebrile, comfortable. He denies pain at this time. Started on clear liquid diet and tolerated so far. No other complaints. - History Source History Provided By: Patient Limitations to Obtaining History: No Limitations - Past Medical History EVENTS TRAFFIC CONTROLLER: No: Alzheimer's, CVA, Dementia, Migraine, Multiple Sclerosis, Peripheral Neuropathy, Parkinson's, Seizure, Syncope, TIA, Vertigo, Other Cardio/Vascular: No: AFIB, Aneurysm, Aortic Insufficiency, Aortic Stenosis, CAD, CHF, Deep Vein Thrombosis, HTN, Hyperlipdemia, IN, Mitral Insufficiency, Mitral Stenosis, Murmur, Pulmonary Hypertension, Other Pulmonary: No: Asthma, Bronchitis, Cancer, COPD, O2 Dependent, Pneumonia, Previously Intubated, Pulmonary Embolus, Pulmonary Fibrosis, Sleep Apnea, Other Gastrointestinal: No: Ascites, Cancer, Constipation, Crohn's Disease, Diverticulitis, Diverticulosis, Esophageal Varices, Gastritis, GERD, GI Bleed, Hemorrhoids, Hiatal Hernia, Inflamatory Bowel Disease, Irritable Bowel Disease, Pancreatitis, Peptic Ulcer Disease, Ulcerative Colitis, Other Hepatobiliary: No: Cirrhosis, Cholelithiasis, Cholecystitis, Choledocholithiasis, Hepatitis A, Hepatitis B, Hepatitis C, Other Renal/: No: Renal Failure, Renal Inusuff, BPH, Cancer, Hematuria, Hemodialysis, Neurogenic Bladder, Renal Calculi, UTI, Other Heme/Onc: No: Anemia, B12 Deficiency, Bleeding Disorder, Cancer, Current Chemotherapy, Current Radiation Therapy, Hemochromatosis, Hypercoaguable State, Myeloproliferative Synd, Sickle Cell Disease, Sickle Cell Trait, Thrombocytopenia, Other Infectious Disease: No: AIDS, C-Diff, Herpes Zoster, HIV, MRSA, STD's, Tuberc ulosis, VREF, Other Psych: No: Addictions, Anxiety, Bipolar, Depression, Panic, Psychosis, Schizophrenia, Other Musculoskeletal: No: Bursitis, Chronic low back pain, Hemiparesis, Hemiplegia, Osteoarthritis, Paraplegia, Other Rheumatology: No: Fibromyalgia, Gout, Lupus, Rheumatoid Arthritis, Sarcoidosis, Vasculitis, Other ENT: No: Allergic Rhinitis, Sinusitis, Other Endocrine: No: Sesar's Disease, Harris's Disease, Diabetes Insipidus, Diabetes Mellitus, Hyperparathyroidism, Hyperthyroidism, Hypothyroidism, Osteopenia, SIADH, Other Dermatology: No: Basal Cell, Cellulitis, Eczema, Melanoma, Psoriasis, Squamous Cell, Other - Smoking History Smoking history: Never smoked Have you smoked in the past 12 months: No - Social History ADL: Independent Home Medications - Allergies Allergies/Adverse Reactions: Allergies Allergy/AdvReac Type Severity Reaction Status Date / Time No Known Allergies Allergy Unverified 12/15/19 14:51 - Home Medications Home Medications: Ambulatory Orders Unobtainable 12/15/19 Review of Systems - Review of Systems Constitutional: reports: No Symptoms Eyes: reports: No Symptoms HENT: reports: No Symptoms Neck: reports: No Symptoms Cardiovascular: reports: No Symptoms Respiratory: reports: No Symptoms Gastrointestinal: reports: No Symptoms Genitourinary: reports: No Symptoms Integumentary: reports: No Symptoms Neurological: reports: No Symptoms Endocrine: reports: No Symptoms Hematology/Lymphatic: reports: No Symptoms Psychiatric: reports: No Symptoms Physical Exam Vital Signs: Vital Signs Temperature 98.5 F 12/16/19 19:31 Pulse Rate 85 12/16/19 19:31 Respiratory Rate 20 12/16/19 19:31 Blood Pressure 143/73 12/16/19 19:31 O2 Sat by Pulse Oximetry (%) 100 12/16/19 18:52 Constitutional: Yes: No Distress, Calm Eyes: Yes: Conjunctiva Clear Cardiovascular: Yes: Regular Rate and Rhythm Gastrointestinal: Yes: Soft, Tenderness (Lower abd TTP, no guarding/rigidity) Renal/: Yes: WNL Musculoskeletal: Yes: WNL Extremities: Yes: WNL Integumentary: Yes: WNL Neurological: Yes: Alert, Oriented Labs: CBC, BMP 12/16/19 07:50 12/16/19 07:50 Laboratory Tests 12/15/19 12/15/19 12/15/19 16:15 16:15 16:15 WBC 12.7 H RBC 5.07 Hgb 14.7 Hct 44.8 MCV 88.4 MCH 29.0 MCHC 32.8 RDW 13.8 Plt Count 156 MPV 9.8 Absolute Neuts (auto) 10.0 H Neutrophils % 78.8 Lymphocytes % 12.1 Monocytes % 8.7 Eosinophils % 0.1 Basophils % 0.3 Nucleated RBC % 0 PT with INR 12.60 INR 1.07 PTT (Actin FS) 31.1 Sodium Potassium Chloride Carbon Dioxide Anion Gap BUN Creatinine Est GFR (CKD-EPI)AfAm Est GFR (CKD-EPI)NonAf Random Glucose Calcium Phosphorus Magnesium Total Bilirubin AST ALT Alkaline Phosphatase Total Protein Albumin Lipase Urine Color Yellow Urine Appearance Clear Urine pH 8.5 H Ur Specific Perry 1.017 Urine Protein Negative Urine Glucose (UA) Negative Urine Ketones Negative Urine Blood Negative Urine Nitrite Negative Urine Bilirubin Negative Urine Urobilinogen 1.0 Ur Leukocyte Esterase Negative Blood Type Antibody Screen 12/15/19 12/15/19 12/16/19 16:15 16:15 03:30 WBC RBC Hgb Hct MCV MCH MCHC RDW Plt Count MPV Absolute Neuts (auto) Neutrophils % Lymphocytes % Monocytes % Eosinophils % Basophils % Nucleated RBC % PT with INR INR PTT (Actin FS) Sodium 136 Potassium 4.1 Chloride 100 Carbon Dioxide 26 Anion Gap 10 BUN 12.6 Creatinine 0.9 Est GFR (CKD-EPI)AfAm 126.90 Est GFR (CKD-EPI)NonAf 109.49 Random Glucose 101 Calcium 8.9 Phosphorus Magnesium Total Bilirubin 0.8 AST 27 ALT 44 Alkaline Phosphatase 99 Total Protein 7.4 Albumin 3.9 Lipase 107 Urine Color Yellow Urine Appearance Clear Urine pH 8.0 Ur Specific Perry 1.027 Urine Protein Trace Urine Glucose (UA) Negative Urine Ketones Negative Urine Blood Negative Urine Nitrite Negative Urine Bilirubin Negative Urine Urobilinogen 1.0 Ur Leukocyte Esterase Negative Blood Type O POSITIVE Antibody Screen Negative 12/16/19 12/16/19 07:50 07:50 WBC 15.5 H RBC 4.65 Hgb 13.6 Hct 41.3 MCV 88.7 MCH 29.3 MCHC 33.1 RDW 14.0 Plt Count 136 MPV 9.8 Absolute Neuts (auto) Neutrophils % Lymphocytes % Monocytes % Eosinophils % Basophils % Nucleated RBC % PT with INR INR PTT (Actin FS) Sodium 135 L Potassium 4.1 Chloride 100 Carbon Dioxide 29 Anion Gap 7 L BUN 10.6 Creatinine 0.9 Est GFR (CKD-EPI)AfAm 126.90 Est GFR (CKD-EPI)NonAf 109.49 Random Glucose 105 Calcium 8.5 Phosphorus 3.0 Magnesium 2.3 Total Bilirubin AST ALT Alkaline Phosphatase Total Protein Albumin Lipase Urine Color Urine Appearance Urine pH Ur Specific Perry Urine Protein Urine Glucose (UA) Urine Ketones Urine Blood Urine Nitrite Urine Bilirubin Urine Urobilinogen Ur Leukocyte Esterase Blood Type Antibody Screen Blood cultures pending COVID-19 pending Imaging - Results Cat Scan: Report Reviewed Problem List - Problems (1) Acute gangrenous appendicitis with perforation and peritonitis Code(s): K35.32 - ACUTE APPENDICITIS WITH PERF AND LOC PERITONITIS, W/O ABSCS Assessment/Plan Acute Gangrenous Appendicitis with perforation s/p Lap Appendectomy POD#0 Fever Leukocytosis -- Pt currently afebrile, comfortable. Started on liquid diet, tolerating. -- Zosyn IV empirically for now -- monitor wbc/temp trend -- follow up blood cultures -- COVID screen results pending. Isolation/airborne/droplet/contact precautions in place for now -- discussed with Surgery monitor closely Will follow Thank you
[2019-12-16] MEDS ORDERED: PIPERACILLIN/TAZOBACTAM 4.5 GM VIAL IVPB ONE (21:00)
[2019-12-16] MEDS ORDERED: DEXTROSE 5%-WATER 100 ML IVPB ONE (21:00)
[2019-12-16] MEDS: PIPERACILLIN/TAZOB 4.5 GM 4.5 GM in DEXTROSE 5%-WATER 100 ML IVPB SCH (21:06)
[2019-12-16] MEDS: HEPARIN NA (PORCINE) 5,000 UNITS/ML 1ML VIAL SQ SCH (21:06)
[2019-12-17] MEDS: ACETAMINOPHEN 1000 MG/100 ML VIAL (NON FORMULARY) IVPB SCH ×2 (00:06→05:46)
[2019-12-17] MEDS ORDERED: KETOROLAC TROMETHAMINE 30 MG/1 ML VIAL IVPUSH PRN (01:00)
[2019-12-17] MEDS ORDERED: DEXTROSE 5%-WATER 100 ML IVPB ONE ×4 (03:52→20:26)
[2019-12-17] MEDS ORDERED: PIPERACILLIN/TAZOBACTAM 4.5 GM VIAL IVPB ONE ×4 (03:52→20:25)
[2019-12-17] MEDS: PIPERACILLIN/TAZOB 4.5 GM 4.5 GM in DEXTROSE 5%-WATER 100 ML IVPB SCH ×4 (03:57→20:51)
[2019-12-17] MEDS: LACTATED RINGERS SOLUTION 1,000 ML IV SCH ×3 (06:49→18:25)
[2019-12-17] MEDS: HEPARIN NA (PORCINE) 5,000 UNITS/ML 1ML VIAL SQ SCH ×2 (09:09→21:00)
[2019-12-17 10:03] LABS: BASO % 0.1 % (0-2.0); HEMOGLOBIN 12.7 GM/dL (11.7-16.9); LYMPH % 9.3 % (8-40); MCH 28.9 pg (25.7-33.7); MCHC 32.6 g/dl (32.0-35.9); MEAN CELL VOLUME 88.8 fl (80-96); MEAN PLT VOLUME 9.7 fl (7.5-11.1); MONO % 6.6 % (3.8-10.2); PLATELET COUNT 123 K/MM3 (134-434); RBC 4.39 M/mm3 (4.00-5.60); RDW 14.1 % (11.9-15.9); WHITE BLOOD COUNT 10.3 K/mm3 (4.0-10.0)
[2019-12-17 10:21] LABS: BLOOD UREA NITROGEN 11.8 mg/dL (7-18); CALCIUM 8.2 mg/dL (8.5-10.1); CREATININE 0.7 mg/dL (0.55-1.3); POTASSIUM 4.2 mmol/L (3.5-5.1)
[2019-12-17 10:54] LABS: MAGNESIUM 2.2 mg/dL (1.8-2.4); PHOSPHOROUS 3.2 mg/dL (2.5-4.9)
--- NOTE | 2019-12-17 12:05 | PN ---
Progress Note (short form) - Note Progress Note: Attending Surgeon POD#1 Feels better; tolerated liquids VSS AF abdo-soft; port site dressins c/d/i; QUINCY serosanguinous; o/w negative WBC 10.3 QUINCY 57 cc's.serosanguinous IMP: improved PLAN: Advance diet/OOB/decrease IV/continue drain. Immanuel Melara MD FACS
--- NOTE | 2019-12-17 16:12 | PN ---
Physical Exam: SUBJECTIVE: Patient seen and examined bedside. In no distress. Reports passing gas. Says he's hungry. OBJECTIVE: Vital Signs Period Temp Pulse Resp BP Sys/David Pulse Ox Last 24 Hr 97.8 F-100.3 F 64-85 16-20 101-143/51-452 95-100 GENERAL: The patient is awake, alert, and fully oriented, in no acute distress. HEAD: Normal with no signs of trauma. EYES: PERRL, extraocular movements intact, sclera anicteric, conjunctiva clear. No ptosis. LUNGS: Breath sounds equal, clear to auscultation bilaterally, no wheezes, no crackles HEART: Regular rate and rhythm, S1, S2 ABDOMEN: Soft, nondistended, tender around incision site, QUINCY drain has 57 cc serosanguinous fluid EXTREMITIES: 2+ pulses, warm, well-perfused, no edema. SKIN: Warm, dry Laboratory Results - last 24 hr 12/17/19 12/17/19 09:00 09:00 WBC 10.3 H RBC 4.39 Hgb 12.7 Hct 39.0 MCV 88.8 MCH 28.9 MCHC 32.6 RDW 14.1 Plt Count 123 L MPV 9.7 Absolute Neuts (auto) 8.6 H Neutrophils % 84.0 H Lymphocytes % 9.3 D Monocytes % 6.6 Eosinophils % 0.0 D Basophils % 0.1 Nucleated RBC % 0 Sodium 138 Potassium 4.2 Chloride 103 Carbon Dioxide 29 Anion Gap 6 L BUN 11.8 Creatinine 0.7 Est GFR (CKD-EPI)AfAm 140.71 Est GFR (CKD-EPI)NonAf 121.41 Random Glucose 121 H Calcium 8.2 L Phosphorus 3.2 Magnesium 2.2 Active Medications Generic Name Dose Route Start Last Admin Trade Name Freq PRN Reason Stop Dose Admin Heparin Sodium (Porcine) 5,000 unit 12/16/19 22:00 12/17/19 09:09 Heparin - SQ 5,000 unit BID MANJEET Administration Piperacillin Sod/Tazobactam 100 mls @ 200 mls/hr 12/16/19 21:00 12/17/19 14:02 Sod 4.5 gm/ Dextrose IVPB 200 mls/hr Q6H-IV MANJEET Administration Protocol Lactated Ringer's 1,000 mls @ 75 mls/hr 12/17/19 12:07 12/17/19 12:30 Lactated Ringers Solution IV 75 mls/hr ASDIR MANJEET Administration Ketorolac Tromethamine 30 mg 12/17/19 01:00 Toradol Injection - IVPUSH Q8H PRN PAIN LEVEL 1-5 Morphine Sulfate 2 mg 12/16/19 19:31 Morphine Sulfate IVPUSH Q4H PRN PAIN LEVEL 7 - 10 Ondansetron HCl 4 mg 12/16/19 17:54 Zofran Injection IVPUSH Q8H PRN NAUSEA Oxycodone HCl 5 mg 12/16/19 17:54 12/17/19 14:13 Roxicodone - PO 5 mg Q6H PRN Administration PAIN LEVEL 1-5 PLAN: ASSESSMENT/PLAN: 34M w/ no significant PMH presented to [facility] for complaint of 2d of abdominal pain, initially starting as vague periumbilical pain before migrating to the RLQ. CT findings suggestive of appendicitis. Admitted for appendicitis with plan for lap appy. RLQ pain - appenditis w/sepsis - CT A/P: acute appendicitis, possible early perforation, diffuse hepatic steatosis - Zosyn day 2 - Leukocytosis improving - ID consult (Isidra) - Surgery Consult (Kelton): -acute gangrenous appendicitis w/perforation - QUINCY drain 57cc serosanguinous fluid - post op day 1: Advance diet/OOB/decrease IV/continue drain FEN - IVF - NPO DVT PPX: - SCDs Visit type - Emergency Visit Emergency Visit: Yes ED Registration Date: 12/15/19 Care time: The patient presented to the Emergency Department on the above date and was hospitalized for further evaluation of their emergent condition. - New Patient This patient is new to me today: No - Critical Care Critical Care patient: No - Discharge Referral Referred to [facility] Med P.C.: Yes ATTENDING PHYSICIAN STATEMENT I saw and evaluated the patient. I reviewed the resident's note and discussed the case with the resident. I agree with the resident's findings and plan as documented. SUBJECTIVE: OBJECTIVE: ASSESSMENT AND PLAN:
--- NOTE | 2019-12-17 18:11 | PN ---
Teaching Attending Note Name of Resident: Zamzam Ruiz ATTENDING PHYSICIAN STATEMENT I saw and evaluated the patient. I reviewed the resident's note and discussed the case with the resident. I agree with the resident's findings and plan as documented. SUBJECTIVE: Patient is feeling better , having watery BMs. OBJECTIVE: Vital Signs Temperature 99.7 F H 12/17/19 14:00 Pulse Rate 82 12/17/19 14:00 Respiratory Rate 18 12/17/19 14:00 Blood Pressure 122/65 12/17/19 14:00 O2 Sat by Pulse Oximetry (%) 96 12/17/19 14:00 PE: per resident's note +QUINCY drain CBCD WBC 10.3 K/mm3 (4.0-10.0) H 12/17/19 09:00 RBC 4.39 M/mm3 (4.00-5.60) 12/17/19 09:00 Hgb 12.7 GM/dL (11.7-16.9) 12/17/19 09:00 Hct 39.0 % (35.4-49) 12/17/19 09:00 MCV 88.8 fl (80-96) 12/17/19 09:00 MCHC 32.6 g/dl (32.0-35.9) 12/17/19 09:00 RDW 14.1 % (11.9-15.9) 12/17/19 09:00 Plt Count 123 K/MM3 (134-434) L 12/17/19 09:00 MPV 9.7 fl (7.5-11.1) 12/17/19 09:00 CMP Sodium 138 mmol/L (136-145) 12/17/19 09:00 Potassium 4.2 mmol/L (3.5-5.1) 12/17/19 09:00 Chloride 103 mmol/L (98-107) 12/17/19 09:00 Carbon Dioxide 29 mmol/L (21-32) 12/17/19 09:00 Anion Gap 6 MMOL/L (8-16) L 12/17/19 09:00 BUN 11.8 mg/dL (7-18) 12/17/19 09:00 Creatinine 0.7 mg/dL (0.55-1.3) 12/17/19 09:00 Random Glucose 121 mg/dL (74-106) H 12/17/19 09:00 Calcium 8.2 mg/dL (8.5-10.1) L 12/17/19 09:00 Total Bilirubin 0.8 mg/dL (0.2-1) 12/15/19 16:15 AST 27 U/L (15-37) 12/15/19 16:15 ALT 44 U/L (13-61) 12/15/19 16:15 Alkaline Phosphatase 99 U/L (45-117) 12/15/19 16:15 Total Protein 7.4 g/dl (6.4-8.2) 12/15/19 16:15 Albumin 3.9 g/dl (3.4-5.0) 12/15/19 16:15 Current Medications Generic Name Dose Route Start Last Admin Trade Name Freq PRN Reason Stop Dose Admin Heparin Sodium (Porcine) 5,000 unit 12/16/19 22:00 12/17/19 09:09 Heparin - SQ 5,000 unit BID MANJEET Administration Piperacillin Sod/Tazobactam 100 mls @ 200 mls/hr 12/16/19 21:00 12/17/19 14:02 Sod 4.5 gm/ Dextrose IVPB 200 mls/hr Q6H-IV MANJEET Administration Protocol Lactated Ringer's 1,000 mls @ 75 mls/hr 12/17/19 12:07 12/17/19 12:30 Lactated Ringers Solution IV 75 mls/hr ASDIR MANJEET Administration Ketorolac Tromethamine 30 mg 12/17/19 01:00 Toradol Injection - IVPUSH Q8H PRN PAIN LEVEL 1-5 Morphine Sulfate 2 mg 12/16/19 19:31 Morphine Sulfate IVPUSH Q4H PRN PAIN LEVEL 7 - 10 Ondansetron HCl 4 mg 12/16/19 17:54 Zofran Injection IVPUSH Q8H PRN NAUSEA Oxycodone HCl 5 mg 12/16/19 17:54 12/17/19 14:13 Roxicodone - PO 5 mg Q6H PRN Administration PAIN LEVEL 1-5 Home Medications Medication Instructions Recorded Unobtainable 12/15/19 Microbiology 12/16/19 14:20 Blood - Peripheral Venous Blood Culture - Preliminary NO GROWTH OBTAINED AFTER 24 HOURS, INCUBATION TO CONTINUE FOR 4 DAYS. 12/16/19 14:30 Blood - Peripheral Venous Blood Culture - Preliminary NO GROWTH OBTAINED AFTER 24 HOURS, INCUBATION TO CONTINUE FOR 4 DAYS. 12/15/19 16:15 Urine - Urine Clean Catch Urine Culture - Final NO GROWTH OBTAINED ASSESSMENT AND PLAN: This patient is a 34yom with no significant Pmhx presneted with abdominal pain, and was found to have acute appendicitis s. #POD#1 acute appendicitis s/p lap appendix , perforated gangerounous appendix as per sx Dr. Melara liquid diet, patient is having watery like bowel movements , continue IVF, Id on the case, Zosyn 4.5gm q8h DVT PPX: heparin, SCDs
--- NOTE | 2019-12-17 20:33 | PN ---
Progress Note, Physician History of Present Illness: Pt doing ok. Temp of 99.7F. Has been having some loose BMs, no abd pain at this time. - Current Medication List Current Medications: Active Medications Heparin Sodium (Porcine) (Heparin -) 5,000 unit SQ BID MANJEET Last Admin: 12/17/19 09:09 Dose: 5,000 unit Documented by: Piperacillin Sod/Tazobactam (Sod 4.5 gm/ Dextrose) 100 mls @ 200 mls/hr IVPB Q6H-IV MANJEET; Protocol Last Admin: 12/17/19 14:02 Dose: 200 mls/hr Documented by: Lactated Ringer's (Lactated Ringers Solution) 1,000 mls @ 75 mls/hr IV ASDIR MANJEET Last Admin: 12/17/19 18:25 Dose: 75 mls/hr Documented by: Ketorolac Tromethamine (Toradol Injection -) 30 mg IVPUSH Q8H PRN PRN Reason: PAIN LEVEL 1-5 Morphine Sulfate (Morphine Sulfate) 2 mg IVPUSH Q4H PRN PRN Reason: PAIN LEVEL 7 - 10 Ondansetron HCl (Zofran Injection) 4 mg IVPUSH Q8H PRN PRN Reason: NAUSEA Oxycodone HCl (Roxicodone -) 5 mg PO Q6H PRN PRN Reason: PAIN LEVEL 1-5 Last Admin: 12/17/19 14:13 Dose: 5 mg Documented by: - Objective Vital Signs: Vital Signs Temperature 99.0 F 12/17/19 18:00 Pulse Rate 73 12/17/19 18:00 Respiratory Rate 18 12/17/19 18:00 Blood Pressure 117/59 L 12/17/19 18:00 O2 Sat by Pulse Oximetry (%) 96 12/17/19 14:00 Constitutional: Yes: No Distress, Calm Cardiovascular: Yes: Regular Rate and Rhythm Respiratory: Yes: CTA Bilaterally Gastrointestinal: Yes: Normal Bowel Sounds, Soft Genitourinary: Yes: WNL Extremities: Yes: WNL Edema: No Integumentary: Yes: WNL Wound/Incision: Yes: Dressing Dry and Intact Neurological: Yes: Alert, Oriented Labs: CBC, BMP 12/17/19 09:00 12/17/19 09:00 INR, PTT INR 1.07 (0.83-1.09) 12/15/19 16:15 Microbiology 07/18/20 14:20 Blood - Peripheral Venous Blood Culture - Preliminary NO GROWTH OBTAINED AFTER 24 HOURS, INCUBATION TO CONTINUE FOR 4 DAYS. 12/16/19 14:30 Blood - Peripheral Venous Blood Culture - Preliminary NO GROWTH OBTAINED AFTER 24 HOURS, INCUBATION TO CONTINUE FOR 4 DAYS. 12/15/19 16:15 Urine - Urine Clean Catch Urine Culture - Final NO GROWTH OBTAINED Problem List - Problems (1) Acute gangrenous appendicitis with perforation and peritonitis Code(s): K35.32 - ACUTE APPENDICITIS WITH PERF AND LOC PERITONITIS, W/O ABSCS Assessment/Plan Acute Gangrenous Appendicitis with perforation s/p Lap Appendectomy POD#1 Fever Leukocytosis -- Pt with leukocytosis resolving, temp of 99.7F today - continue monitor -- Zosyn IV empirically for now -- monitor wbc/temp trend -- blood cultures neg -- tolerating diet -- COVID screen results pending. Isolation/airborne/droplet/contact precautions in place for now -- monitor for persistence of loose stools, no current abd pain
[2019-12-17] MEDS ORDERED: ACETAMINOPHEN 325 MG TABLET (FP) PO ONE (21:04)
[2019-12-18] MEDS ORDERED: PIPERACILLIN/TAZOBACTAM 4.5 GM VIAL IVPB ONE ×2 (02:52→09:24)
[2019-12-18] MEDS ORDERED: DEXTROSE 5%-WATER 100 ML IVPB ONE ×2 (02:53→09:24)
[2019-12-18] MEDS: PIPERACILLIN/TAZOB 4.5 GM 4.5 GM in DEXTROSE 5%-WATER 100 ML IVPB SCH ×3 (03:02→15:45)
--- NOTE | 2019-12-18 06:28 | PN ---
Progress Note (short form) - Note Progress Note: Pt. seen and examined on 12/16 @ 8pm. Pt. POD#1 for lap appy under GETA. Pt. doing well. No anesthesia related complications.
[2019-12-18 09:15] LABS: HEMATOCRIT 38.6 % (35.4-49); HEMOGLOBIN 12.8 GM/dL (11.7-16.9); MCH 29.6 pg (25.7-33.7); MCHC 33.2 g/dl (32.0-35.9); MEAN CELL VOLUME 89.3 fl (80-96); MEAN PLT VOLUME 9.2 fl (7.5-11.1); PLATELET COUNT 138 K/MM3 (134-434); RBC 4.32 M/mm3 (4.00-5.60); RDW 14.1 % (11.9-15.9); WHITE BLOOD COUNT 9.1 K/mm3 (4.0-10.0)
[2019-12-18 09:18] LABS: BLOOD UREA NITROGEN 9.2 mg/dL (7-18); CALCIUM 8.5 mg/dL (8.5-10.1); CREATININE 0.8 mg/dL (0.55-1.3); MAGNESIUM 2.3 mg/dL (1.8-2.4); PHOSPHOROUS 2.3 mg/dL (2.5-4.9); POTASSIUM 3.9 mmol/L (3.5-5.1)
[2019-12-18] MEDS: HEPARIN NA (PORCINE) 5,000 UNITS/ML 1ML VIAL SQ SCH (09:31)
--- NOTE | 2019-12-18 10:40 | PN ---
Progress Note (short form) - Note Progress Note: Surgery POD #2 lap appendectomy patient seen and examined at bedside with no complaints. Patient has been OOB and moved his bowels this morning. He is voiding and tolerating his diet. He denies any CP, SOB, N/D, Fever or chills. Vital Signs Temp 99.4 F 12/18/19 05:51 Pulse 79 12/18/19 05:51 Resp 18 12/18/19 05:51 BP 113/64 12/18/19 05:51 Pulse Ox 98 12/18/19 05:51 Intake & Output 12/17/19 12/17/19 12/18/19 11:59 23:59 11:59 Intake Total 1675 1575 1025 Output Total 1562 15 1507 Balance 113 1560 -482 Weight 183 lb Intake: IV 875 1075 825 Lactated Ringers Solution 875 625 1,000 ml @ 125 mls/hr IV ASDIR MANJEET Rx#: [id number] Lactated Ringers Solution 450 825 1,000 ml @ 75 mls/hr IV ASDIR MANJEET Rx#:[id number] IVPB 200 200 200 Oral 600 300 Output: Drainage 12 15 7 LLQ 12 15 7 Urine 1550 1500 Void 1550 1500 Other: Voiding Method Urinal Toilet Toilet # Unmeasured Voids Void 3 Bowel Movement No No No Height 5 ft 6 in Body Mass Index (BMI) 29.5 CBC, BMP 12/18/19 08:20 12/18/19 08:20 PE: A&Ox3, NAD Unlabored redp on RA ABD: ND, with diffuse TTP throughout, dressings c/d/i with surrounding tissue i ntact and no tracking erythema, or evidence of fluid collection or active d/c. J/P drain removed with tip fully intact and no active d/c from drain ostomy site. B/L LE compartments soft, suplle and non-tender with +2 DP pulses. Problem List - Problems (1) Acute appendicitis Assessment/Plan: Assessment/Plan: POD#2 lap apply doing well. -pain control -Encourage Ambulation OOB -Encourage IS -Cleared by surgery for d/c home today Evaluation and plan discussed with Dr Melara Code(s): K35.80 - UNSPECIFIED ACUTE APPENDICITIS Qualifiers: Acute appendicitis type: other Qualified Code(s): K35.890 - Other acute appendicitis without perforation or gangrene; K35.89 - Other acute appendicitis
[2019-12-18] MEDS: LACTATED RINGERS SOLUTION 1,000 ML IV SCH ×2 (10:51→12:10)
--- NOTE | 2019-12-18 14:10 | PN ---
Progress Note, Physician History of Present Illness: stable feels better - Current Medication List Current Medications: Active Medications Heparin Sodium (Porcine) (Heparin -) 5,000 unit SQ BID MANJEET Last Admin: 12/18/19 09:31 Dose: 5,000 unit Documented by: Piperacillin Sod/Tazobactam (Sod 4.5 gm/ Dextrose) 100 mls @ 200 mls/hr IVPB Q6H-IV MANJEET; Protocol Last Admin: 12/18/19 09:30 Dose: 200 mls/hr Documented by: Lactated Ringer's (Lactated Ringers Solution) 1,000 mls @ 75 mls/hr IV ASDIR SC H Last Admin: 12/18/19 10:51 Dose: 75 mls/hr Documented by: Ketorolac Tromethamine (Toradol Injection -) 30 mg IVPUSH Q8H PRN PRN Reason: PAIN LEVEL 1-5 Morphine Sulfate (Morphine Sulfate) 2 mg IVPUSH Q4H PRN PRN Reason: PAIN LEVEL 7 - 10 Ondansetron HCl (Zofran Injection) 4 mg IVPUSH Q8H PRN PRN Reason: NAUSEA Oxycodone HCl (Roxicodone -) 5 mg PO Q6H PRN PRN Reason: PAIN LEVEL 1-5 Last Admin: 12/17/19 14:13 Dose: 5 mg Documented by: - Objective Vital Signs: Vital Signs Temperature 99.5 F 12/18/19 12:00 Pulse Rate 80 12/18/19 12:00 Respiratory Rate 18 12/18/19 12:00 Blood Pressure 148/64 12/18/19 12:00 O2 Sat by Pulse Oximetry (%) 96 12/18/19 12:00 Constitutional: Yes: No Distress, Calm Cardiovascular: Yes: S1, S2 Respiratory: Yes: Regular, CTA Bilaterally Gastrointestinal: Yes: Normal Bowel Sounds, Soft Musculoskeletal: Yes: WNL Extremities: Yes: Other Wound/Incision: Yes: Clean/Dry Neurological: Yes: Alert, Oriented Psychiatric: Yes: Alert, Oriented Labs: CBC, BMP 12/18/19 08:20 12/18/19 08:20 INR, PTT INR 1.07 (0.83-1.09) 12/15/19 16:15 Assessment/Plan Problem List - Problems (1) Acute gangrenous appendicitis with perforation and peritonitis Code(s): K35.32 - ACUTE APPENDICITIS WITH PERF AND LOC PERITONITIS, W/O ABSCS Assessment/Plan Acute Gangrenous Appendicitis with perforation s/p Lap Appendectomy Fever Leukocytosis abd pain plan can be switched to oral augmentin 875 mg po bid for 4 more days rest as per surgery
--- NOTE | 2019-12-18 14:41 | DS ---
Physical Exam: SUBJECTIVE: Patient seen and examined bedside. Doing well, in no acute distress. Said he had a bowel movement last night. Reports no n/v/d, has started eating regular diet without and issue. OBJECTIVE: Vital Signs Period Temp Pulse Resp BP Sys/David Pulse Ox Last 24 Hr 98.8 F-100.1 F 73-80 18-18 105-148/58-64 95-98 PHYSICAL EXAM GENERAL: The patient is awake, alert, and fully oriented, in no acute distress. HEAD: Normal with no signs of trauma. EYES: PERRL, extraocular movements intact, sclera anicteric, conjunctiva clear. No ptosis. LUNGS: Breath sounds equal, clear to auscultation bilaterally, no wheezes, no crackles HEART: Regular rate and rhythm, S1, S2 ABDOMEN: Soft, nondistended, mildly tender around incision site, QUINCY drain has 7 cc serosanguinous fluid. Drain later that afternoon removed by surgery. EXTREMITIES:warm, well-perfused, no edema. SKIN: Warm, dry LABS Laboratory Results - last 24 hr 12/18/19 12/18/19 08:20 08:20 WBC 9.1 RBC 4.32 Hgb 12.8 Hct 38.6 MCV 89.3 MCH 29.6 MCHC 33.2 RDW 14.1 Plt Count 138 MPV 9.2 Sodium 139 Potassium 3.9 Chloride 104 Carbon Dioxide 29 Anion Gap 6 L BUN 9.2 Creatinine 0.8 Est GFR (CKD-EPI)AfAm 133.20 Est GFR (CKD-EPI)NonAf 114.93 Random Glucose 100 Calcium 8.5 Phosphorus 2.3 L Magnesium 2.3 HOSPITAL COURSE: Patient presented to the ED with 2 days of abdominal pain that localized to RLQ. CT was suggestive of appendicitis with possible abscess, patient was deemed septic. Patient underwent a lap appy. During surgery, appendix was found perforated. QUINCY drain was placed and IV antibiotics were continued. Post op day 2 drain was removed. Patient was discharged with 4 days of PO Augmentin. Patient should follow up with surgery in 1 week after discharge. Date of Admission:12/15/19 Date of Discharge: 12/18/19 Minutes to complete discharge: 36 Discharge Summary Problems reviewed: Yes Reason For Visit: APPENDICITIS Current Active Problems Acute appendicitis (Acute) Acute gangrenous appendicitis with perforation and peritonitis (Acute) Condition: Stable - Instructions Diet, Activity, Other Instructions: Dear MELANIA MA, You came into the hospital with abdominal pain. You had surgery to remove your appendix. You are now stable for discharge. We are sending you home on medication to prevent an infection. Augmentin 875 mg twice a day for 4 days with food. Please follow up with your primary care physician in 1 week to monitor your improvement and for a repeat blood count Please follow up with Dr. Melara, your surgeon in 1 week for a post op appt ([phone]) If you have new, worsening, or concerning symptoms please return to the ED or call 911 Post Operative Instructions Physical activity Resume your normal everyday activity as tolerated no heavy lifting or exercise until seen by your surgeon. You may walk unlimited amounts of and climb stairs. You may resume driving the car when you feel safe and comfortable behind the wheel. Wound care If you have a bandage, leave it on, and keep dry for 48 - 72 hours. After that time discard the outer bandage. If there are tapes on the skin under the outer bandage, leave them in place. They will peel off in the next 7 to 10 days. Do Not peel them off. You may shower 2 days after surgery. If there are tapes present on the skin, they can get wet. Diet There are no dietary restrictions. Eat healthy, high-fiber foods. Drink 6 to 8 glasses of liquid each day. This will assist in keeping your bowels are regular. Pain management You may take Tylenol or acetaminophen or Ibuprofen (for example, Motrin, Advil etc.) Any pain prescription medication ordered should be taken as prescribed for moderate to severe pain. Call Dr. Melara for any of the following: Severe pain not relieved by medication Fever of 101 or higher Excessive bleeding or drainage on dressing Inability to urinate Call the office at [phone] for a post operative appointment in 7 - 10 days. Referrals: Immanuel Melara MD [Staff Physician] - 1 Week Regina Cradenas MD [Primary Care Provider] - 1 Week Disposition: HOME - Home Medications Comprehensive Discharge Medication List: Ambulatory Orders Amox-Tr/K Cl [Augmentin - 875Mg Tablet] 1 tab PO BID 4 Days #8 tablet 12/18/19 This patient is new to me today: No Emergency Visit: Yes ED Registration Date: 12/15/19 Care time: The patient presented to the Emergency Department on the above date and was hospitalized for further evaluation of their emergent condition. Critical Care patient: No - Discharge Referral Referred to [facility] No ATTENDING PHYSICIAN STATEMENT I saw and evaluated the patient. I reviewed the resident's note and discussed the case with the resident. I agree with the resident's findings and plan as documented. SUBJECTIVE: OBJECTIVE: ASSESSMENT AND PLAN:
--- NOTE | 2019-12-18 14:43 | PN ---
Teaching Attending Note Name of Resident: Zamzam Ruiz ATTENDING PHYSICIAN STATEMENT I saw and evaluated the patient. I reviewed the resident's note and discussed the case with the resident. I agree with the resident's findings and plan as documented. SUBJECTIVE: Patient is comfortable with No acute distress. no fever or chills. OBJECTIVE: Vital Signs Temperature 99.5 F 12/18/19 12:00 Pulse Rate 80 12/18/19 12:00 Respiratory Rate 18 12/18/19 12:00 Blood Pressure 148/64 12/18/19 12:00 O2 Sat by Pulse Oximetry (%) 96 12/18/19 12:00 PE;per resident's note QUINCY drained is removed today wound is clean. CBCD WBC 9.1 K/mm3 (4.0-10.0) 12/18/19 08:20 RBC 4.32 M/mm3 (4.00-5.60) 12/18/19 08:20 Hgb 12.8 GM/dL (11.7-16.9) 12/18/19 08:20 Hct 38.6 % (35.4-49) 12/18/19 08:20 MCV 89.3 fl (80-96) 12/18/19 08:20 MCHC 33.2 g/dl (32.0-35.9) 12/18/19 08:20 RDW 14.1 % (11.9-15.9) 12/18/19 08:20 Plt Count 138 K/MM3 (134-434) 12/18/19 08:20 MPV 9.2 fl (7.5-11.1) 12/18/19 08:20 CMP Sodium 139 mmol/L (136-145) 12/18/19 08:20 Potassium 3.9 mmol/L (3.5-5.1) 12/18/19 08:20 Chloride 104 mmol/L (98-107) 12/18/19 08:20 Carbon Dioxide 29 mmol/L (21-32) 12/18/19 08:20 Anion Gap 6 MMOL/L (8-16) L 12/18/19 08:20 BUN 9.2 mg/dL (7-18) 12/18/19 08:20 Creatinine 0.8 mg/dL (0.55-1.3) 12/18/19 08:20 Random Glucose 100 mg/dL (74-106) 12/18/19 08:20 Calcium 8.5 mg/dL (8.5-10.1) 12/18/19 08:20 Total Bilirubin 0.8 mg/dL (0.2-1) 12/15/19 16:15 AST 27 U/L (15-37) 12/15/19 16:15 ALT 44 U/L (13-61) 12/15/19 16:15 Alkaline Phosphatase 99 U/L (45-117) 12/15/19 16:15 Total Protein 7.4 g/dl (6.4-8.2) 12/15/19 16:15 Albumin 3.9 g/dl (3.4-5.0) 12/15/19 16:15 Current Medications Generic Name Dose Route Start Last Admin Trade Name Freq PRN Reason Stop Dose Admin Heparin Sodium (Porcine) 5,000 unit 12/16/19 22:00 12/18/19 09:31 Heparin - SQ 5,000 unit BID MANJEET Administration Piperacillin Sod/Tazobactam 100 mls @ 200 mls/hr 12/16/19 21:00 12/18/19 09:30 Sod 4.5 gm/ Dextrose IVPB 200 mls/hr Q6H-IV MANJEET Administration Protocol Lactated Ringer's 1,000 mls @ 75 mls/hr 12/17/19 12:07 12/18/19 10:51 Lactated Ringers Solution IV 75 mls/hr ASDIR MANJEET Administration Ketorolac Tromethamine 30 mg 12/17/19 01:00 Toradol Injection - IVPUSH Q8H PRN PAIN LEVEL 1-5 Morphine Sulfate 2 mg 12/16/19 19:31 Morphine Sulfate IVPUSH Q4H PRN PAIN LEVEL 7 - 10 Ondansetron HCl 4 mg 12/16/19 17:54 Zofran Injection IVPUSH Q8H PRN NAUSEA Oxycodone HCl 5 mg 12/16/19 17:54 12/17/19 14:13 Roxicodone - PO 5 mg Q6H PRN Administration PAIN LEVEL 1-5 Home Medications Medication Instructions Recorded Amox-Tr/K Cl [Augmentin - 875Mg 1 tab PO BID 4 Days #8 tablet 12/18/19 Tablet] Microbiology 12/16/19 14:20 Blood - Peripheral Venous Blood Culture - Preliminary NO GROWTH OBTAINED AFTER 24 HOURS, INCUBATION TO CONTINUE FOR 4 DAYS. 12/16/19 14:30 Blood - Peripheral Venous Blood Culture - Preliminary NO GROWTH OBTAINED AFTER 24 HOURS, INCUBATION TO CONTINUE FOR 4 DAYS. 12/15/19 16:15 Urine - Urine Clean Catch Urine Culture - Final NO GROWTH OBTAINED ASSESSMENT AND PLAN: This patient is a 34yom with no significant Pmhx presneted with abdominal pain, and was found to have acute appendicitis s. #POD#2 acute appendicitis s/p lap appendix , perforated gangerounous appendix as per sx Dr. Melara able to tolerate diet , s/p IV Zosyn 4.5gm q8h , will dc him on oral augmentin x 4 days with food cleared by Dr Melara to dc patient home DVT PPX: heparin, SCDs
[2019-12-18 15:36] VITALS: BP 151/88; PULSE 81; TEMP 99
--- NOTE | 2019-12-19 13:02 | PATH ---
Surgical Pathology Report Patient Name: MELANIA BRERY Med. Rec. #: [id number] /Age/Gender: 1985 (Age: 34) / M Account: [id number] Location: [address] [place] [address]/[facility] Taken: 12/16/2019 Received: 12/18/2019 Reported: 12/19/2019 Physicians: Immanuel Melara MD Specimen(s) Received APPENDIX Clinical History Appendicitis Final Diagnosis APPENDIX, LAPAROSCOPIC APPENDECTOMY: ACUTE APPENDICITIS AND PERIAPPENDICITIS. ACUTE SEROSITIS. Electronically Signed Ifrah Connell M.D. Gross Description Received in formalin labeled "appendix," are 2 separate portions of a disrupted vermiform appendix measuring 4.0 and 3.0 cm in length. The longer portion displays a stapled margin of resection. The outer surfaces are jacob green, focally hemorrhagic and display attached exudate. Sectioning reveals focal necrosis. The lumen focally contains fecal material. The wall of the appendix averages 0.1 cm in thickness. Manufacturing Test Technician sections are submitted in one cassette. /12/18/2019 [facility]/12/18/2019
--- NOTE | 2019-12-25 20:26 | OP ---
DATE OF OPERATION: 12/16/2019 PREOPERATIVE DIAGNOSIS: Acute appendicitis. POSTOPERATIVE DIAGNOSIS: Acute appendicitis. PROCEDURE: Laparoscopic appendectomy. SURGEON: Immanuel Quinonez MD. HAND FRAME SURGICAL ELASTIC KNITTER: Yoselin Leal PA-C. ANESTHESIA: General. OPERATIVE FINDINGS: Acute gangrenous appendicitis with perforation. However, there was no abscess present. PROCEDURE: The patient was placed on the operating room table in the supine position, and after induction of general anesthesia and placement of a Collins catheter, the patient's abdomen was prepped with ChloraPrep and draped in sterile fashion. A timeout was taken, and pneumoperitoneum established at the umbilicus, using a Veress needle to an intraabdominal pressure of 15 mmHg. Next, a 12-mm suprapubic port just to the left of the midline was placed without incident, and then a left lower quadrant 5-mm port. The patient was placed in the head-down position and rotated to the left and laparoscopy carried out and previously noted findings were observed. The appendix was grasped and using blunt dissection and the LigaSure device mobilized from the lateral abdominal wall. The mesoappendix was serially divided using the LigaSure device as well. Once the base of the appendix was identified at the confluence of the 3 tenia on the cecum, a 60-mm Endo DAYNA purple load stapler was placed across the base of the appendix and fired. The appendix was then placed in an EndoCatch and brought up to the abdominal wall at the 12-mm port site. The suture line was inspected for hemostasis and/or leak, and there was found to be none. The appendix was then removed with the 12-mm port, and sent the pathological examination. The 12-mm port was replaced and pneumoperitoneum reestablished, and hemostasis checked for and noted to be good. A 10 mm QUINCY drain was introduced through the left lower quadrant 5 mm port and the port removed; the drain was positioned in the right lower quadrant/pelvis and secured to the skin with 2-0 silk suture and connected to bulb self suction. At this point, the remaining ports were removed, and the pneumoperitoneum evacuated. The defect at the suprapubic port site was closed with a single [id number] 0 Vicryl suture, and the port sites were injected with 0.5% Marcaine. The skin edges were reapproximated with interrupted 4-0 Biosyn followed by Steri-Strips and Band-Aid dressings. The patient was then aroused from anesthesia and prior to this the Collins catheter removed, and the patient transferred to post anesthesia care unit in stable condition awake and alert, estimated blood loss 30 mL, replacement crystalloid, drains none, specimen appendix to pathology. I, Immanuel Melara, was physically present in the operating room from the time the patient was placed on the operating room table until patient was transferred to the postanesthesia care unit in my accompaniment. ESTIMATED BLOOD LOSS: 40 mL. REPLACEMENTS: Crystalloid. DRAINS: One 10-mm Guillaume-Shahid. SPECIMEN: Appendix to pathology. I, Immanuel Melara, was physically present in the operating room from the time the patient was placed on the operating room table until he was transferred to the postanesthesia care unit in my accompaniment. MD ROLLY Horvath/[id number] MTDD
== END 2019-12-18 15:49 | disposition home or self-care (01) | DRG 710 ==
LOC: JER 14:46 → JERBED 19:41 → J5S 23:53
PROVIDERS: ADMIT Internal Medicine; ATTEND Internal Medicine
PROC: 0DTJ4ZZ Resection of Appendix, Percutaneous Endoscopic Approach (ICD-10-PCS; principal; 2019-12-16 16:00)
DX: A41.89 Other specified sepsis (principal); R50.9 Fever, unspecified; R10.31 Right lower quadrant pain; D72.829 Elevated white blood cell count, unspecified; K35.32 Acute appendicitis with perforation, localized peritonitis, and gangrene, without abscess; K76.0 Fatty (change of) liver, not elsewhere classified
CPT/HCPCS: 36415; 71045-TC-FY; 74177-TC; 80048; 80053; 81003; 83690; 83735; 84100; 85025; 85027; 85610; 85730; 86850; 86900; 86901; 87040; 87086; 88304-TC; 93005; 93010; 94760; 99285-25; J0131; J1644; Q9967; U0003